=== PATIENT | male | born 1950 | race Caucasian/White ===

== ENCOUNTER 2022-09-08 03:35 | Emergency (ER) | payer BC, MEDICAID ==
[~2022-09-08] VITALS: Ht 157.5 cm; Wt 60.0 kg
[~2022-09-08 03:35] MED LIST: RISP2TAB97 PO; RISP3TAB11 PO; TRAZ-91 PO
[2022-09-08 03:45] VITALS: BP 166/84
[2022-09-08] MEDS ORDERED: loratadine 10mg tablet PO STA (04:16)
[2022-09-08] MEDS ORDERED: famotidine 20mg tablet PO ONE (04:20)
== END 2022-09-08 04:34 | disposition home or self-care (01) ==
LOC: ER 03:36
DX: L50.9 Urticaria, unspecified (principal); I51.9 Heart disease, unspecified; F20.9 Schizophrenia, unspecified; F17.200 Nicotine dependence, unspecified, uncomplicated; Z88.2 Allergy status to sulfonamides; Z79.899 Other long term (current) drug therapy; Z88.8 Allergy status to other drugs, medicaments and biological substances
CPT/HCPCS: 99283

== ENCOUNTER 2023-05-24 08:57 | Emergency (ER) | payer BC, MEDICAID ==
[~2023-05-24] VITALS: Ht 165.1 cm; Wt 65.9 kg
[2023-05-24 09:19] VITALS: BP 141/77; PULSE 69; RESP 20; TEMP 98.2; O2SAT 99
[2023-05-24] MEDS ORDERED: HYDROcodone/acetaminophen 5mg/325mg tablet PO ONE (12:15)
[2023-05-24] MEDS ORDERED: clindamycin 150mg capsule PO ONE (12:15)
[2023-05-24] MEDS ORDERED: bacitracin 15gm ointment TP ONE (12:15)
[2023-05-24] MEDS ORDERED: ibuprofen tablet 400 MG TABLET PO ONE (12:15)
[2023-05-24] MEDS ORDERED: LIDOcaine 1% W/epiNEPHrine 1:200,000 10ml vial IJ ONE (12:15)
--- NOTE | 2023-05-24 12:33 | NUR ---
Call Pt for medications. Pt not in lobby.
== END 2023-05-25 06:53 | disposition left against medical advice (07) ==
LOC: ER 08:58
DX: L02.512 Cutaneous abscess of left hand (principal); F17.200 Nicotine dependence, unspecified, uncomplicated; Z88.2 Allergy status to sulfonamides; Z79.899 Other long term (current) drug therapy
CPT/HCPCS: 99281; A6449

== ENCOUNTER 2023-10-05 15:37 | Emergency (ER) | payer BC, MEDICAID ==
[2023-10-05] MEDS ORDERED: ACET650T2 PO (20:40)
[2023-10-05] MEDS ORDERED: GUAI200T5 PO (20:40)
[2023-10-05] MEDS ORDERED: FEXO1TAB49 PO (20:40)
== END 2023-10-05 16:35 | disposition left against medical advice (07) ==
LOC: ER 15:38
DX: H92.09 Otalgia, unspecified ear (principal); Z53.21 Procedure and treatment not carried out due to patient leaving prior to being seen by health care provider

== ENCOUNTER 2023-10-05 19:25 | Emergency (ER) | payer BC, MEDICAID ==
[~2023-10-05] VITALS: Ht 162.6 cm; Wt 62.3 kg
[2023-10-05] MEDS ORDERED: FEXO1TAB49 PO (20:40)
[2023-10-05] MEDS ORDERED: GUAI200T5 PO (20:40)
[2023-10-05] MEDS ORDERED: ACET650T2 PO (20:40)
[2023-10-05 21:03] VITALS: BP 124/70; PULSE 78; RESP 18; TEMP 97.8; O2SAT 97
== END 2023-10-05 21:17 | disposition home or self-care (01) ==
LOC: ER 19:26
DX: J06.9 Acute upper respiratory infection, unspecified (principal)
CPT/HCPCS: 99282; 99283

== ENCOUNTER 2024-01-28 14:46 | Emergency (ER) | payer BC, MEDICAID ==
[~2024-01-28] VITALS: Ht 162.6 cm; Wt 63.0 kg
[~2024-01-28 14:46] MED LIST changes: +FEXO1TAB49 PO; +GUAI200T5 PO
[2024-01-28 15:14] VITALS: BP 130/83; PULSE 75; RESP 16; TEMP 98.3; O2SAT 100
[2024-01-28] MEDS ORDERED: CEPH-585 PO (15:16)
[2024-01-28] MEDS ORDERED: CLIN300C54 PO (15:16)
== END 2024-01-28 15:26 | disposition home or self-care (01) ==
LOC: ER 14:46
DX: L02.213 Cutaneous abscess of chest wall (principal); F20.9 Schizophrenia, unspecified; Z86.73 Personal history of transient ischemic attack (TIA), and cerebral infarction without residual deficits; Z88.2 Allergy status to sulfonamides; Z88.8 Allergy status to other drugs, medicaments and biological substances; Z79.899 Other long term (current) drug therapy
CPT/HCPCS: 99283

== ENCOUNTER 2024-06-29 16:24 | Inpatient (IN) | payer BC, MEDICAID ==
[~2024-06-29] VITALS: Ht 165.1 cm; Wt 69.5 kg
[~2024-06-29 16:24] MED LIST changes: +CEPH-585 PO
[2024-06-29] MEDS: morphine 4 MG/ML inj SYRINge IV ONE ×2 (16:39→16:42)
[2024-06-29] MEDS: ondansetron/PF 4mg/2ml inj IV ONE (16:40)
[2024-06-29 16:53] LABS: BASOPHILS # (AUTO) 0.1 X10'3 (0-0.2); BASOPHILS % (AUTO) 0.4 % (0-1); EOSINOPHILS # (AUTO) 0.1 X10'3 (0-0.9); EOSINOPHILS % (AUTO) 0.9 % (0-6); HEMATOCRIT 43.1 % (42.0-52.0); HEMOGLOBIN 14.5 g/dl (14.0-17.9); LYMPHOCYTES # (AUTO) 2.2 X10'3 (1.1-4.8); MEAN CORPUSCULAR HEMOGLOBIN 33.7 PG (27.0-31.0); MEAN CORPUSCULAR HGB CONC 33.6 g/dL (33.0-36.5); MEAN CORPUSCULAR VOLUME 100.5 FL (78-98); MONOCYTES # (AUTO) 3.4 X10'3 (0-0.9); MONOCYTES % (AUTO) 21.5 % (2-12); NEUTROPHILS # (AUTO) 9.9 X10'3 (1.8-7.7); NEUTROPHILS % (AUTO) 63.2 % (42-75); PLATELET COUNT 236 X10'3 (140-440); RED BLOOD COUNT 4.29 X10'6 (4.70-6.10); RED CELL DISTRIBUTION WIDTH 14.7 % (11.5-14.5); WHITE BLOOD COUNT 15.7 X10'3 (4.5-11.0)
[2024-06-29] MEDS: normal saline 1000ML IV soln IVB ONE (16:54)
[2024-06-29] MEDS: fentaNYL/PF 50MCG/1 ML 2ML syringe IV ONE (17:01)
[2024-06-29 17:04] LABS: ALANINE AMINOTRANSFERASE 194 U/L (12-78); ALBUMIN 2.8 G/DL (3.4-5.0); ALBUMIN/GLOBULIN RATIO 0.5 (1.1-1.5); ALKALINE PHOSPHATASE 175 IU/L (46-116); ANION GAP 21 (8-16); ASPARTATE AMINO TRANSFERASE 112 U/L (10-37); BILIRUBIN,TOTAL 2.5 MG/DL (0.1-1.0); BLOOD UREA NITROGEN 99 MG/DL (7-18); BUN/CREATININE RATIO 13.1 (10.0-20.0); CALCIUM 8.3 MG/DL (8.5-10.1); CHLORIDE 99 MMOL/L (99-107); CREATININE 7.56 MG/DL (0.60-1.10); SODIUM 139 MMOL/L (135-145); TOTAL CARBON DIOXIDE 19.1 MMOL/L (24-32); TOTAL PROTEIN 8.2 G/DL (6.4-8.2); eCRCL 7 ML/MIN; eGFR 7 ML/MIN
[2024-06-29] MEDS ORDERED: morphine 2 MG/ML inj. syringe IV PRN ×2 (17:10)
[2024-06-29] MEDS ORDERED: potassium Cl 20 mEq SR tablet PO PRN (17:10)
[2024-06-29] MEDS ORDERED: magnesium Cl slow-release 64mg tablet PO PRN (17:10)
[2024-06-29] MEDS ORDERED: acetaminophen 325mg tablet PO PRN (17:10)
[2024-06-29] MEDS ORDERED: potassium Cl 40MEQ/1/2NS 520ml 520 ML IV PRN (17:10)
[2024-06-29] MEDS ORDERED: ondansetron/PF 4mg/2ml inj IV PRN (17:10)
[2024-06-29] MEDS ORDERED: bisacodyl 10mg suppository rectal RC PRN (17:10)
[2024-06-29] MEDS ORDERED: HYDROcodone/acetaminophen 10/325mg tab PO PRN (17:10)
[2024-06-29] MEDS ORDERED: magnesium sulf-water 2g/50mL 50 ML IV PRN (17:10)
[2024-06-29] MEDS ORDERED: HYDROcodone/acetaminophen 5mg/325mg tablet PO PRN (17:10)
[2024-06-29] MEDS ORDERED: magnesium sulf-water 4G/100mL 100 ML IV PRN (17:10)
[2024-06-29 17:11] LABS: PRO BRAIN NATRIURETIC PEPTIDE 336 PG/ML (0-125)
[2024-06-29 17:13] LABS: GLUCOSE 127 MG/DL (70-104); POTASSIUM 4.3 MMOL/L (3.5-5.1)
[2024-06-29 17:27] LABS: TOTAL CELLS COUNTED 100
[2024-06-29 17:28] LABS: BURR CELLS FEW; PLATELET ESTIMATE NORMAL
[2024-06-29] MEDS: LORazepam 2 mg/ml vial IV ONE (17:34)
[2024-06-29] MEDS: normal saline 1000ml 1,000 ML IV SCH (17:34)
[2024-06-29] MEDS: LidoCAINE 2% Topical Jelly 11mL syringe (UROJET) TOP ONE (17:37)
[2024-06-29] MEDS: CefTRIAXone 2gm/D5W 50ml BAG 50 ML IV SCH (17:40)
[2024-06-29 17:52] LABS: CREATINE KINASE 207 U/L (39-308)
[2024-06-29 17:55] LABS: ETHANOL < 10 MG/DL (<10)
[2024-06-29] MEDS ORDERED: NO HOME MEDS (18:16)
[2024-06-29 18:25] LABS: APTT 24 SECONDS (22-32); INR 1.1 INR; PROTHROMBIN TIME 11.8 SECONDS (9.0-12.0)
[2024-06-29 18:30] LABS: URINE AMPHETAMINE SCREEN POSITIVE (Neg); URINE BARBITUATE SCREEN NEGATIVE (Neg); URINE BENZODIAZEPINES SCREEN NEGATIVE (Neg); URINE CANNABINOID SCREEN NEGATIVE (Neg); URINE COCAINE SCREEN NEGATIVE (Neg); URINE METHADONE SCREEN NEGATIVE (Neg); URINE OPIATE SCREEN POSITIVE (Neg); URINE PHENCYCLIDINE SCREEN NEGATIVE (Neg)
[2024-06-29] MEDS: nicotine 14mg patch - 24hr TD ONE (18:49)
[2024-06-29 18:53] LABS: UA COLLECTION TYPE FOLEY CATH
[2024-06-29 18:55] LABS: COLOR,URINE Brown (Yellow)
[2024-06-29 18:57] LABS: CLARITY,URINE Bloody (Clear); SQUAMOUS EPITHELIAL CELL,UR FEW /LPF (FEW)
[2024-06-29 18:58] LABS: BACTERIA,URINE FEW /HPF (Neg); RBC,URINE TNTC /HPF (0-2)
[2024-06-29 19:02] LABS: AMORPHOUS PHOSPHATES 2+
[2024-06-29] MEDS: heparin, porcine 5000 units/ml vial SQ SCH (19:59)
[2024-06-29] MEDS: metroNIDAZOLE-Flagyl 500mg/NS 100 ML IV SCH (19:59)
[2024-06-29 22:00] VITALS: BP 135/78; PULSE 83; RESP 19; TEMP 97.5; O2SAT 92
[2024-06-29 22:03] VITALS: RESP 19; O2SAT 92
[2024-06-30] VITALS (7 sets, daily range): BP systolic 105–144; BP diastolic 55–87; PULSE 76–83; RESP 14–20; TEMP 97.8–98.5; O2SAT 93–97
[2024-06-30] MEDS: piperacillin/tazo 3.375gm/50ml 50 ML IV SCH (00:10)
[2024-06-30 07:31] LABS: ALANINE AMINOTRANSFERASE 131 U/L (12-78); ALBUMIN 1.8 G/DL (3.4-5.0); ALBUMIN/GLOBULIN RATIO 0.5 (1.1-1.5); ALKALINE PHOSPHATASE 121 IU/L (46-116); ANION GAP 9 (8-16); ASPARTATE AMINO TRANSFERASE 82 U/L (10-37); BILIRUBIN,TOTAL 2.1 MG/DL (0.1-1.0); BLOOD UREA NITROGEN 42 MG/DL (7-18); BUN/CREATININE RATIO 26.3 (10.0-20.0); CALCIUM 7.5 MG/DL (8.5-10.1); CHLORIDE 117 MMOL/L (99-107); POTASSIUM 4.5 MMOL/L (3.5-5.1); SODIUM 150 MMOL/L (135-145); TOTAL CARBON DIOXIDE 24.2 MMOL/L (24-32); TOTAL PROTEIN 5.7 G/DL (6.4-8.2); eCRCL 34 ML/MIN; eGFR 42 ML/MIN
[2024-06-30 07:34] LABS: GLUCOSE 74 MG/DL (70-104)
[2024-06-30 07:59] LABS: BASOPHILS % (AUTO) 0.4 % (0-1); EOSINOPHILS # (AUTO) 0.2 X10'3 (0-0.9); EOSINOPHILS % (AUTO) 2.8 % (0-6); HEMATOCRIT 31.8 % (42.0-52.0); HEMOGLOBIN 10.6 g/dl (14.0-17.9); LYMPHOCYTES # (AUTO) 0.8 X10'3 (1.1-4.8); MEAN CORPUSCULAR HEMOGLOBIN 33.1 PG (27.0-31.0); MEAN CORPUSCULAR HGB CONC 33.2 g/dL (33.0-36.5); MEAN CORPUSCULAR VOLUME 99.8 FL (78-98); MEAN PLATELET VOLUME 9.4 FL (7.4-10.4); MONOCYTES # (AUTO) 1.2 X10'3 (0-0.9); MONOCYTES % (AUTO) 19.3 % (2-12); NEUTROPHILS # (AUTO) 4.2 X10'3 (1.8-7.7); NEUTROPHILS % (AUTO) 65.5 % (42-75); RED BLOOD COUNT 3.19 X10'6 (4.70-6.10); RED CELL DISTRIBUTION WIDTH 14.7 % (11.5-14.5); WHITE BLOOD COUNT 6.4 X10'3 (4.5-11.0)
[2024-06-30 08:01] LABS: PLATELET COUNT 108 X10'3 (140-440)
[2024-06-30] MEDS: tamsulosin 0.4mg capsule PO SCH ×2 (09:25→11:10)
[2024-06-30] MEDS: dextrose 5%-water 1,000 ML IV SCH (16:04)
[2024-07-01] VITALS (8 sets, daily range): BP systolic 122–172; BP diastolic 65–117; PULSE 70–82; RESP 15–24; TEMP 98–99.5; O2SAT 93–96
[2024-07-01 10:13] LABS: BASOPHILS % (AUTO) 0.7 % (0-1); EOSINOPHILS # (AUTO) 0.3 X10'3 (0-0.9); EOSINOPHILS % (AUTO) 5.9 % (0-6); HEMATOCRIT 34.5 % (42.0-52.0); HEMOGLOBIN 11.8 g/dl (14.0-17.9); LYMPHOCYTES % (AUTO) 19.3 % (21-51); MEAN CORPUSCULAR HEMOGLOBIN 35.5 PG (27.0-31.0); MEAN CORPUSCULAR HGB CONC 34.2 g/dL (33.0-36.5); MEAN CORPUSCULAR VOLUME 103.8 FL (78-98); MEAN PLATELET VOLUME 9.2 FL (7.4-10.4); MONOCYTES # (AUTO) 1.3 X10'3 (0-0.9); MONOCYTES % (AUTO) 23.8 % (2-12); NEUTROPHILS # (AUTO) 2.7 X10'3 (1.8-7.7); NEUTROPHILS % (AUTO) 50.3 % (42-75); PLATELET COUNT 126 X10'3 (140-440); RED BLOOD COUNT 3.32 X10'6 (4.70-6.10); RED CELL DISTRIBUTION WIDTH 14.1 % (11.5-14.5); WHITE BLOOD COUNT 5.4 X10'3 (4.5-11.0)
[2024-07-01 10:15] LABS: ALANINE AMINOTRANSFERASE 129 U/L (12-78); ALBUMIN 1.7 G/DL (3.4-5.0); ALBUMIN/GLOBULIN RATIO 0.4 (1.1-1.5); ALKALINE PHOSPHATASE 137 IU/L (46-116); ANION GAP 5 (8-16); ASPARTATE AMINO TRANSFERASE 102 U/L (10-37); BILIRUBIN,TOTAL 1.6 MG/DL (0.1-1.0); BLOOD UREA NITROGEN 14 MG/DL (7-18); CALCIUM 7.5 MG/DL (8.5-10.1); CHLORIDE 112 MMOL/L (99-107); CREATININE 0.61 MG/DL (0.60-1.10); GLUCOSE 99 MG/DL (70-104); POTASSIUM 3.5 MMOL/L (3.5-5.1); SODIUM 141 MMOL/L (135-145); TOTAL CARBON DIOXIDE 24.5 MMOL/L (24-32); TOTAL PROTEIN 5.6 G/DL (6.4-8.2); eCRCL 90 ML/MIN; eGFR > 90 ML/MIN
[2024-07-01] MEDS ORDERED: NICO-731 TOP (14:17)
[2024-07-01] MEDS ORDERED: tamsulosin capsule PO (14:17)
[2024-07-01] MEDS ORDERED: CIPR-259 PO (14:17)
[2024-07-01] MEDS: folic acid 0.4mg tablet PO SCH (17:29)
[2024-07-02] VITALS (8 sets, daily range): BP systolic 134–157; BP diastolic 84–93; PULSE 69–102; RESP 14–19; TEMP 97–98.4; O2SAT 94–98
[2024-07-02 06:18] LABS: BASOPHILS # (AUTO) 0.1 X10'3 (0-0.2); EOSINOPHILS # (AUTO) 0.5 X10'3 (0-0.9); EOSINOPHILS % (AUTO) 8.5 % (0-6); HEMATOCRIT 38.1 % (42.0-52.0); HEMOGLOBIN 12.9 g/dl (14.0-17.9); LYMPHOCYTES # (AUTO) 1.1 X10'3 (1.1-4.8); LYMPHOCYTES % (AUTO) 18.4 % (21-51); MEAN CORPUSCULAR HEMOGLOBIN 34.3 PG (27.0-31.0); MEAN CORPUSCULAR HGB CONC 33.7 g/dL (33.0-36.5); MEAN CORPUSCULAR VOLUME 101.8 FL (78-98); MEAN PLATELET VOLUME 9.2 FL (7.4-10.4); MONOCYTES # (AUTO) 1.2 X10'3 (0-0.9); MONOCYTES % (AUTO) 18.9 % (2-12); NEUTROPHILS # (AUTO) 3.2 X10'3 (1.8-7.7); NEUTROPHILS % (AUTO) 53.2 % (42-75); PLATELET COUNT 144 X10'3 (140-440); RED BLOOD COUNT 3.75 X10'6 (4.70-6.10); RED CELL DISTRIBUTION WIDTH 14.2 % (11.5-14.5); WHITE BLOOD COUNT 6.1 X10'3 (4.5-11.0)
[2024-07-02 06:47] LABS: ALANINE AMINOTRANSFERASE 151 U/L (12-78); ALBUMIN 1.8 G/DL (3.4-5.0); ALBUMIN/GLOBULIN RATIO 0.4 (1.1-1.5); ALKALINE PHOSPHATASE 172 IU/L (46-116); ANION GAP 3 (8-16); ASPARTATE AMINO TRANSFERASE 132 U/L (10-37); BILIRUBIN,TOTAL 1.2 MG/DL (0.1-1.0); BLOOD UREA NITROGEN 13 MG/DL (7-18); BUN/CREATININE RATIO 17.3 (10.0-20.0); CALCIUM 7.5 MG/DL (8.5-10.1); CHLORIDE 110 MMOL/L (99-107); CREATININE 0.75 MG/DL (0.60-1.10); GLUCOSE 116 MG/DL (70-104); POTASSIUM 3.4 MMOL/L (3.5-5.1); SODIUM 140 MMOL/L (135-145); TOTAL CARBON DIOXIDE 27.2 MMOL/L (24-32); eCRCL 73 ML/MIN; eGFR > 90 ML/MIN
[2024-07-02 07:01] LABS: PLATELET ESTIMATE NORMAL; ROULEAUX 1+; TOTAL CELLS COUNTED 100
[2024-07-02] MEDS: potassium Cl 20 mEq SR tablet PO PRN ×2 (11:01→20:19)
[2024-07-02] MEDS ORDERED: potassium Cl 20 mEq SR tablet PO PRN (20:05)
[2024-07-02] MEDS: ciprofloxacin 250mg tablet PO SCH (21:46)
[2024-07-03] VITALS (7 sets, daily range): BP systolic 136–146; BP diastolic 72–87; PULSE 70–80; RESP 14–19; TEMP 98.1–98.6; O2SAT 95–98
[2024-07-03 07:01] LABS: BASOPHILS # (AUTO) 0.1 X10'3 (0-0.2); BASOPHILS % (AUTO) 0.8 % (0-1); EOSINOPHILS # (AUTO) 0.5 X10'3 (0-0.9); EOSINOPHILS % (AUTO) 6.9 % (0-6); HEMATOCRIT 39.1 % (42.0-52.0); HEMOGLOBIN 13.3 g/dl (14.0-17.9); LYMPHOCYTES # (AUTO) 1.3 X10'3 (1.1-4.8); LYMPHOCYTES % (AUTO) 17.7 % (21-51); MEAN CORPUSCULAR HEMOGLOBIN 34.7 PG (27.0-31.0); MEAN CORPUSCULAR HGB CONC 34.1 g/dL (33.0-36.5); MEAN CORPUSCULAR VOLUME 101.8 FL (78-98); MONOCYTES # (AUTO) 1.3 X10'3 (0-0.9); MONOCYTES % (AUTO) 17.3 % (2-12); NEUTROPHILS # (AUTO) 4.2 X10'3 (1.8-7.7); NEUTROPHILS % (AUTO) 57.3 % (42-75); PLATELET COUNT 146 X10'3 (140-440); RED BLOOD COUNT 3.84 X10'6 (4.70-6.10); RED CELL DISTRIBUTION WIDTH 14.1 % (11.5-14.5); WHITE BLOOD COUNT 7.4 X10'3 (4.5-11.0)
[2024-07-03 07:12] LABS: ALANINE AMINOTRANSFERASE 173 U/L (12-78); ALBUMIN 1.9 G/DL (3.4-5.0); ALBUMIN/GLOBULIN RATIO 0.4 (1.1-1.5); ALKALINE PHOSPHATASE 199 IU/L (46-116); ANION GAP 1 (8-16); ASPARTATE AMINO TRANSFERASE 162 U/L (10-37); BILIRUBIN,TOTAL 1.1 MG/DL (0.1-1.0); BLOOD UREA NITROGEN 14 MG/DL (7-18); BUN/CREATININE RATIO 19.7 (10.0-20.0); CALCIUM 7.9 MG/DL (8.5-10.1); CHLORIDE 109 MMOL/L (99-107); CREATININE 0.71 MG/DL (0.60-1.10); POTASSIUM 4.2 MMOL/L (3.5-5.1); SODIUM 138 MMOL/L (135-145); TOTAL CARBON DIOXIDE 27.6 MMOL/L (24-32); TOTAL PROTEIN 6.4 G/DL (6.4-8.2); eCRCL 79 ML/MIN; eGFR > 90 ML/MIN
[2024-07-03 07:13] LABS: GLUCOSE 97 MG/DL (70-104)
[2024-07-03] MEDS: acetaminophen 325mg tablet PO PRN (21:22)
[2024-07-04] VITALS (7 sets, daily range): BP systolic 135–156; BP diastolic 75–84; PULSE 70–79; RESP 16–20; TEMP 97.2–97.9; O2SAT 94–99
[2024-07-04 06:27] LABS: BASOPHILS # (AUTO) 0.1 X10'3 (0-0.2); BASOPHILS % (AUTO) 0.9 % (0-1); EOSINOPHILS # (AUTO) 0.5 X10'3 (0-0.9); EOSINOPHILS % (AUTO) 6.4 % (0-6); HEMATOCRIT 41.2 % (42.0-52.0); HEMOGLOBIN 13.5 g/dl (14.0-17.9); LYMPHOCYTES # (AUTO) 1.1 X10'3 (1.1-4.8); LYMPHOCYTES % (AUTO) 15.1 % (21-51); MEAN CORPUSCULAR HEMOGLOBIN 33.3 PG (27.0-31.0); MEAN CORPUSCULAR HGB CONC 32.8 g/dL (33.0-36.5); MEAN CORPUSCULAR VOLUME 101.6 FL (78-98); MEAN PLATELET VOLUME 9.3 FL (7.4-10.4); MONOCYTES # (AUTO) 1.2 X10'3 (0-0.9); NEUTROPHILS # (AUTO) 4.6 X10'3 (1.8-7.7); NEUTROPHILS % (AUTO) 61.6 % (42-75); PLATELET COUNT 160 X10'3 (140-440); RED BLOOD COUNT 4.05 X10'6 (4.70-6.10); RED CELL DISTRIBUTION WIDTH 14.1 % (11.5-14.5); WHITE BLOOD COUNT 7.5 X10'3 (4.5-11.0)
[2024-07-04 07:00] LABS: ALANINE AMINOTRANSFERASE 178 U/L (12-78); ALBUMIN 1.9 G/DL (3.4-5.0); ALBUMIN/GLOBULIN RATIO 0.4 (1.1-1.5); ALKALINE PHOSPHATASE 224 IU/L (46-116); ANION GAP 4 (8-16); ASPARTATE AMINO TRANSFERASE 166 U/L (10-37); BILIRUBIN,TOTAL 0.9 MG/DL (0.1-1.0); BLOOD UREA NITROGEN 17 MG/DL (7-18); CALCIUM 8.1 MG/DL (8.5-10.1); CHLORIDE 108 MMOL/L (99-107); CREATININE 0.63 MG/DL (0.60-1.10); GLUCOSE 134 MG/DL (70-104); POTASSIUM 3.7 MMOL/L (3.5-5.1); SODIUM 139 MMOL/L (135-145); TOTAL CARBON DIOXIDE 27.1 MMOL/L (24-32); TOTAL PROTEIN 6.7 G/DL (6.4-8.2); eCRCL 89 ML/MIN; eGFR > 90 ML/MIN
[2024-07-05] VITALS (7 sets, daily range): BP systolic 120–152; BP diastolic 67–90; PULSE 64–100; RESP 14–19; TEMP 97.2–98.7; O2SAT 95–100
[2024-07-05 07:31] LABS: ALANINE AMINOTRANSFERASE 200 U/L (12-78); ALBUMIN 2.2 G/DL (3.4-5.0); ALBUMIN/GLOBULIN RATIO 0.4 (1.1-1.5); ALKALINE PHOSPHATASE 239 IU/L (46-116); ANION GAP 2 (8-16); ASPARTATE AMINO TRANSFERASE 197 U/L (10-37); BLOOD UREA NITROGEN 21 MG/DL (7-18); BUN/CREATININE RATIO 32.3 (10.0-20.0); CALCIUM 7.9 MG/DL (8.5-10.1); CHLORIDE 105 MMOL/L (99-107); CREATININE 0.65 MG/DL (0.60-1.10); POTASSIUM 3.9 MMOL/L (3.5-5.1); SODIUM 136 MMOL/L (135-145); TOTAL CARBON DIOXIDE 29.5 MMOL/L (24-32); TOTAL PROTEIN 7.3 G/DL (6.4-8.2); eCRCL 87 ML/MIN; eGFR > 90 ML/MIN
[2024-07-05 07:41] LABS: GLUCOSE 94 MG/DL (70-104)
[2024-07-06 06:00] VITALS: BP 176/82; PULSE 75; RESP 13; TEMP 97.6; O2SAT 95
[2024-07-06 08:00] VITALS: RESP 13; O2SAT 95
[2024-07-06] MEDS ORDERED: ringers solution, lacted 1,000 ML IV SCH (08:15)
[2024-07-06] MEDS: amLODIPine 5mg tablet PO SCH (08:15)
[2024-07-06 09:24] LABS: ALANINE AMINOTRANSFERASE 246 U/L (12-78); ALBUMIN 2.2 G/DL (3.4-5.0); ALBUMIN/GLOBULIN RATIO 0.4 (1.1-1.5); ALKALINE PHOSPHATASE 236 IU/L (46-116); ANION GAP 4 (8-16); ASPARTATE AMINO TRANSFERASE 235 U/L (10-37); BLOOD UREA NITROGEN 17 MG/DL (7-18); BUN/CREATININE RATIO 22.7 (10.0-20.0); CALCIUM 8.2 MG/DL (8.5-10.1); CHLORIDE 104 MMOL/L (99-107); CREATININE 0.75 MG/DL (0.60-1.10); GLUCOSE 158 MG/DL (70-104); POTASSIUM 3.8 MMOL/L (3.5-5.1); SODIUM 135 MMOL/L (135-145); TOTAL CARBON DIOXIDE 27.2 MMOL/L (24-32); TOTAL PROTEIN 7.5 G/DL (6.4-8.2); eCRCL 75 ML/MIN; eGFR > 90 ML/MIN
[2024-07-06 10:00] VITALS: BP 117/63; PULSE 83; RESP 16; TEMP 98.3; O2SAT 97
[2024-07-06] MEDS: nicotine 14mg patch - 24hr TD SCH (15:25)
[2024-07-06 18:00] VITALS: BP 123/73; PULSE 71; RESP 16; TEMP 98.5; O2SAT 95
[2024-07-06 20:00] VITALS: RESP 14; O2SAT 95
[2024-07-06 22:00] VITALS: BP 119/63; PULSE 76; RESP 18; TEMP 98.2; O2SAT 97
[2024-07-07 06:00] VITALS: BP 139/72; PULSE 70; RESP 18; TEMP 97.8; O2SAT 98
[2024-07-07 07:10] VITALS: RESP 16; O2SAT 98
[2024-07-07 08:55] LABS: ALANINE AMINOTRANSFERASE 262 U/L (12-78); ALBUMIN 2.1 G/DL (3.4-5.0); ALBUMIN/GLOBULIN RATIO 0.4 (1.1-1.5); ALKALINE PHOSPHATASE 224 IU/L (46-116); ANION GAP 3 (8-16); ASPARTATE AMINO TRANSFERASE 250 U/L (10-37); BILIRUBIN,TOTAL 0.9 MG/DL (0.1-1.0); BLOOD UREA NITROGEN 19 MG/DL (7-18); BUN/CREATININE RATIO 28.4 (10.0-20.0); CHLORIDE 104 MMOL/L (99-107); CREATININE 0.67 MG/DL (0.60-1.10); POTASSIUM 3.8 MMOL/L (3.5-5.1); SODIUM 136 MMOL/L (135-145); TOTAL CARBON DIOXIDE 28.8 MMOL/L (24-32); eCRCL 84 ML/MIN; eGFR > 90 ML/MIN
[2024-07-07 08:57] LABS: GLUCOSE 98 MG/DL (70-104)
[2024-07-07 10:00] VITALS: BP 129/73; PULSE 62; RESP 18; TEMP 98.3; O2SAT 98
[2024-07-07 10:08] VITALS: BP_SYST 167; PULSE 74
[2024-07-07] MEDS ORDERED: lactose-reduced food (Ensure Enlive) - 237ml bottle PO SCH (13:00)
[2024-07-10 05:19] LABS: HBSAG SCREEN Negative (Negative); HEP A AB, IGM Negative (Negative); HEP B CORE AB, IGM Negative (Negative); HEP B SURF AB Reactive (.); HEPATITIS C VIRUS ANTIBODY Reactive (Non Reactive)
== END 2024-07-07 11:55 | disposition home or self-care (01) | DRG 725 ==
LOC: ER 16:25 → ED HOLD 17:20 → PCU 3S 22:03 → ORTHO 4S 07-05 17:36
PROVIDERS: ADMIT Internal Medicine; ATTEND Internal Medicine
DX: N40.1 Benign prostatic hyperplasia with lower urinary tract symptoms (principal); N17.0 Acute kidney failure with tubular necrosis; N13.6 Pyonephrosis; E44.0 Moderate protein-calorie malnutrition; E87.0 Hyperosmolality and hypernatremia; R18.8 Other ascites; N13.8 Other obstructive and reflux uropathy; N32.0 Bladder-neck obstruction; R74.01 Elevation of levels of liver transaminase levels; D53.9 Nutritional anemia, unspecified; R33.8 Other retention of urine; R31.9 Hematuria, unspecified; K80.20 Calculus of gallbladder without cholecystitis without obstruction; K74.60 Unspecified cirrhosis of liver; F20.9 Schizophrenia, unspecified; R79.89 Other specified abnormal findings of blood chemistry; Z88.2 Allergy status to sulfonamides; Z86.73 Personal history of transient ischemic attack (TIA), and cerebral infarction without residual deficits; Z88.8 Allergy status to other drugs, medicaments and biological substances; Z68.25 Body mass index [BMI] 25.0-25.9, adult
CPT/HCPCS: 36415; 71045; 74176; 76700; 76770; 80053; 80305; 80320; 81001; 82140; 82550; 82607; 83605; 83880; 83935; 84145; 84156; 84484; 85007; 85025; 85610; 85730; 86705; 86706; 86709; 86803; 86885; 86900; 86901; 87040; 87081; 87088; 87340; 87522; 93005; 97161; 97530; 99291; A4314; A4358; A5200; G0378; J0696; J1644; J2060; J2270; J2405; J2543; J3010; J3490; J7030; J7040; J7070

== ENCOUNTER 2024-07-17 17:05 | Emergency (ER) | payer BC, MEDICAID ==
[~2024-07-17] VITALS: Ht 154.9 cm; Wt 58.1 kg
[~2024-07-17 17:05] MED LIST changes: -CEPH-585 PO; -FEXO1TAB49 PO; -GUAI200T5 PO; +NICO-731 TOP; -RISP2TAB97 PO; -RISP3TAB11 PO; -TRAZ-91 PO; +tamsulosin capsule PO
[2024-07-17 17:06] VITALS: BP 145/98; PULSE 110; RESP 18; O2SAT 97
[2024-07-17 18:08] VITALS: TEMP 98.9
== END 2024-07-17 18:11 | disposition home or self-care (01) ==
LOC: ER 17:06
DX: T83.9XXA Unspecified complication of genitourinary prosthetic device, implant and graft, initial encounter (principal); F20.9 Schizophrenia, unspecified; F41.0 Panic disorder [episodic paroxysmal anxiety]; Z88.2 Allergy status to sulfonamides; Z88.8 Allergy status to other drugs, medicaments and biological substances; Z79.899 Other long term (current) drug therapy; Z86.73 Personal history of transient ischemic attack (TIA), and cerebral infarction without residual deficits; Y92.89 Other specified places as the place of occurrence of the external cause
CPT/HCPCS: 99281

== ENCOUNTER 2024-08-12 01:03 | Emergency (ER) | payer BC, MEDICAID ==
[~2024-08-12] VITALS: Ht 162.6 cm; Wt 64.0 kg
[2024-08-12] MEDS: LidoCAINE 2% Topical Jelly 11mL syringe (UROJET) TOP ONE (01:15)
[2024-08-12 01:28] LABS: BILIRUBIN,URINE NEGATIVE (Neg); CLARITY,URINE CLEAR (Clear); COLOR,URINE YELLOW (Yellow); GLUCOSE, URINE NEGATIVE (Neg); KETONES,URINE NEGATIVE (Neg); LEUKOCYTE ESTERASE ,URINE MODERATE (Neg); NITRITES, URINE NEGATIVE (Neg); OCCULT BLOOD,URINE MODERATE (Neg); PH,URINE >=9.0 (4.8-8.0); PROTEIN,URINE >=300 mg/dl (Neg); UA COLLECTION TYPE FOLEY CATH
[2024-08-12 01:45] LABS: ALANINE AMINOTRANSFERASE 246 U/L (12-78); ALBUMIN 2.7 G/DL (3.4-5.0); ALBUMIN/GLOBULIN RATIO 0.6 (1.1-1.5); ALKALINE PHOSPHATASE 233 IU/L (46-116); ANION GAP 3 (8-16); ASPARTATE AMINO TRANSFERASE 206 U/L (10-37); BILIRUBIN,TOTAL 1.4 MG/DL (0.1-1.0); BLOOD UREA NITROGEN 36 MG/DL (7-18); BUN/CREATININE RATIO 30.8 (10.0-20.0); CALCIUM 8.2 MG/DL (8.5-10.1); CHLORIDE 102 MMOL/L (99-107); CREATININE 1.17 MG/DL (0.60-1.10); LIPASE 66 U/L (16-77); SODIUM 133 MMOL/L (135-145); TOTAL CARBON DIOXIDE 28.1 MMOL/L (24-32); TOTAL PROTEIN 7.3 G/DL (6.4-8.2); eCRCL 46 ML/MIN; eGFR 61 ML/MIN
[2024-08-12 01:47] LABS: GLUCOSE 132 MG/DL (70-104); POTASSIUM 4.2 MMOL/L (3.5-5.1)
[2024-08-12 01:47] LABS: AMORPHOUS PHOSPHATES 4+; BACTERIA,URINE 4+ /HPF (Neg); MUCUS STRANDS MANY /LPF (Neg); RBC,URINE TNTC /HPF (0-2); SQUAMOUS EPITHELIAL CELL,UR NONE SEEN /LPF (FEW); WBC CLUMPS,URINE MANY /HPF (NEGATIVE); WBC,URINE TNTC /HPF (0-4)
[2024-08-12] MEDS ORDERED: iohexol 300mg/ml 100ml inj. ONE (01:54)
[2024-08-12 01:56] LABS: BASOPHILS # (AUTO) 0.1 X10'3 (0-0.2); BASOPHILS % (AUTO) 0.8 % (0-1); EOSINOPHILS # (AUTO) 0.1 X10'3 (0-0.9); EOSINOPHILS % (AUTO) 1.5 % (0-6); HEMATOCRIT 41.1 % (42.0-52.0); HEMOGLOBIN 13.8 g/dl (14.0-17.9); LYMPHOCYTES # (AUTO) 0.8 X10'3 (1.1-4.8); LYMPHOCYTES % (AUTO) 10.1 % (21-51); MEAN CORPUSCULAR HEMOGLOBIN 33.7 PG (27.0-31.0); MEAN CORPUSCULAR HGB CONC 33.6 g/dL (33.0-36.5); MEAN CORPUSCULAR VOLUME 100.3 FL (78-98); MEAN PLATELET VOLUME 9.9 FL (7.4-10.4); MONOCYTES # (AUTO) 1.7 X10'3 (0-0.9); MONOCYTES % (AUTO) 20.9 % (2-12); NEUTROPHILS # (AUTO) 5.5 X10'3 (1.8-7.7); NEUTROPHILS % (AUTO) 66.7 % (42-75); PLATELET COUNT 152 X10'3 (140-440); RED CELL DISTRIBUTION WIDTH 14.3 % (11.5-14.5); WHITE BLOOD COUNT 8.3 X10'3 (4.5-11.0)
[2024-08-12] MEDS: CefTRIAXone/D5W-Rocephin 1gm 50 ML IV ONE (04:10)
[2024-08-12] MEDS ORDERED: CEFP100T7 PO (04:11)
[2024-08-12 05:38] VITALS: BP 139/83; PULSE 82; RESP 20; TEMP 98.3; O2SAT 95
== END 2024-08-12 05:09 | disposition home or self-care (01) ==
LOC: ER 01:03
DX: N39.0 Urinary tract infection, site not specified (principal); R16.0 Hepatomegaly, not elsewhere classified; R74.01 Elevation of levels of liver transaminase levels; F20.9 Schizophrenia, unspecified; F41.0 Panic disorder [episodic paroxysmal anxiety]; Z88.2 Allergy status to sulfonamides; Z88.8 Allergy status to other drugs, medicaments and biological substances; Z79.899 Other long term (current) drug therapy; Z86.73 Personal history of transient ischemic attack (TIA), and cerebral infarction without residual deficits
CPT/HCPCS: 36415; 51702; 74177; 80053; 81001; 83690; 84484; 85025; 87088; 87186; 96365; 99285; J0696; Q9967; 87077; A4314

== ENCOUNTER 2024-08-21 08:44 | Emergency (ER) | payer BC, MEDICAID ==
[~2024-08-21] VITALS: Ht 172.7 cm; Wt 70.9 kg
[~2024-08-21 08:44] MED LIST changes: +CEFP100T7 PO
[2024-08-21 12:38] VITALS: TEMP 98.4
[2024-08-21 14:59] VITALS: BP 146/79; PULSE 76; RESP 16; O2SAT 99
== END 2024-08-21 14:59 | disposition home or self-care (01) ==
LOC: ER 08:45
DX: T83.091A Other mechanical complication of indwelling urethral catheter, initial encounter (principal); F03.90 Unspecified dementia, unspecified severity, without behavioral disturbance, psychotic disturbance, mood disturbance, and anxiety; F20.9 Schizophrenia, unspecified; F41.0 Panic disorder [episodic paroxysmal anxiety]; F17.210 Nicotine dependence, cigarettes, uncomplicated; Z86.73 Personal history of transient ischemic attack (TIA), and cerebral infarction without residual deficits; Z88.2 Allergy status to sulfonamides; Z88.8 Allergy status to other drugs, medicaments and biological substances; Z79.899 Other long term (current) drug therapy
CPT/HCPCS: 51702; 99284; A4314

== ENCOUNTER 2024-09-27 19:35 | Emergency (ER) | payer BC, MEDICAID ==
[~2024-09-27] VITALS: Ht 162.6 cm; Wt 60.0 kg
[2024-09-27 19:41] VITALS: PULSE 75
[2024-09-27 20:22] LABS: BASOPHILS # (AUTO) 0.1 X10'3 (0-0.2); BASOPHILS % (AUTO) 0.7 % (0-1); EOSINOPHILS % (AUTO) 0.2 % (0-6); HEMATOCRIT 43.3 % (42.0-52.0); HEMOGLOBIN 14.6 g/dl (14.0-17.9); LYMPHOCYTES # (AUTO) 0.8 X10'3 (1.1-4.8); LYMPHOCYTES % (AUTO) 10.4 % (21-51); MEAN CORPUSCULAR HGB CONC 33.8 g/dL (33.0-36.5); MEAN CORPUSCULAR VOLUME 97.8 FL (78-98); MEAN PLATELET VOLUME 9.4 FL (7.4-10.4); MONOCYTES # (AUTO) 0.9 X10'3 (0-0.9); MONOCYTES % (AUTO) 11.9 % (2-12); NEUTROPHILS % (AUTO) 76.8 % (42-75); PLATELET COUNT 178 X10'3 (140-440); RED BLOOD COUNT 4.42 X10'6 (4.70-6.10); RED CELL DISTRIBUTION WIDTH 14.3 % (11.5-14.5); WHITE BLOOD COUNT 7.8 X10'3 (4.5-11.0)
[2024-09-27 20:26] LABS: BILIRUBIN,URINE NEGATIVE (Neg); CLARITY,URINE SLIGHTLY CLOUDY (Clear); COLOR,URINE YELLOW (Yellow); GLUCOSE, URINE NEGATIVE (Neg); KETONES,URINE NEGATIVE (Neg); LEUKOCYTE ESTERASE ,URINE SMALL (Neg); NITRITES, URINE NEGATIVE (Neg); OCCULT BLOOD,URINE NEGATIVE (Neg); PROTEIN,URINE NEGATIVE (Neg)
[2024-09-27 20:28] LABS: UA COLLECTION TYPE FOLEY CATH
[2024-09-27 20:32] LABS: ALBUMIN 2.6 G/DL (3.4-5.0); ANION GAP 8 (8-16); BLOOD UREA NITROGEN 23 MG/DL (7-18); BUN/CREATININE RATIO 27.7 (10.0-20.0); CALCIUM 8.6 MG/DL (8.5-10.1); CHLORIDE 105 MMOL/L (99-107); CREATININE 0.83 MG/DL (0.60-1.10); GLUCOSE 112 MG/DL (70-104); POTASSIUM 3.6 MMOL/L (3.5-5.1); SODIUM 138 MMOL/L (135-145); eCRCL 65 ML/MIN; eGFR > 90 ML/MIN
[2024-09-27 20:34] LABS: BACTERIA,URINE 4+ /HPF (Neg); RBC,URINE NONE SEEN /HPF (0-2); SQUAMOUS EPITHELIAL CELL,UR FEW /LPF (FEW)
[2024-09-27] MEDS ORDERED: CEPH-585 PO (20:48)
[2024-09-27] MEDS ORDERED: FLO0.4C PO (20:50)
[2024-09-27 21:13] VITALS: BP 135/80; RESP 16; TEMP 97.3; O2SAT 97
[2024-09-27] MEDS: cephalexin 250mg capsule PO ONE (21:23)
== END 2024-09-27 21:29 | disposition home or self-care (01) ==
LOC: ER 19:36
DX: T83.592A Infection and inflammatory reaction due to indwelling ureteral stent, initial encounter (principal); N39.0 Urinary tract infection, site not specified; R33.9 Retention of urine, unspecified; F20.89 Other schizophrenia; F41.9 Anxiety disorder, unspecified; Z86.73 Personal history of transient ischemic attack (TIA), and cerebral infarction without residual deficits; Z88.2 Allergy status to sulfonamides; Z79.899 Other long term (current) drug therapy; Y84.6 Urinary catheterization as the cause of abnormal reaction of the patient, or of later complication, without mention of misadventure at the time of the procedure; Y92.89 Other specified places as the place of occurrence of the external cause
CPT/HCPCS: 36415; 51702; 80048; 81001; 85025; 87077; 87088; 87186; 99284; A4314

== ENCOUNTER 2025-04-30 19:16 | Emergency (ER) | payer BC, MEDICAID ==
[~2025-04-30] VITALS: Ht 162.6 cm; Wt 60.0 kg
[2025-04-30 19:29] VITALS: BP 146/86; PULSE 78; TEMP 98.8; O2SAT 97
[2025-04-30 19:40] LABS: MEAN PLATELET VOLUME 10.8 FL (7.4-10.4); RED CELL DISTRIBUTION WIDTH 15.9 % (11.5-14.5)
[2025-04-30 19:54] LABS: CREATININE 0.81 MG/DL (0.60-1.10); TOTAL CARBON DIOXIDE 28.3 MMOL/L (24-32); eCRCL 66 ML/MIN; eGFR > 90 ML/MIN
--- NOTE | 2025-04-30 20:55 | Physician Documentation ---
History of Present Illness ~ Chief Complaint: Abdominal Pain Stated Complaint: ABD PAIN Time Seen by MD: 20:53 Primary Medical Doctor: Dr. Collins [facility] Patient presents to the emergency room for evaluation of left lower quadrant abdominal pain. Patient reports he had recent hernia repair at our facility however that has nothing recent until this past winter where he had a small bowel obstruction requiring surgical intervention. Patient states that the left lower quadrant abdominal pain just started today. Reports bladder and bowel to be normal. No fevers. Medication Reconciliation Allergies: Coded Allergies: Sulfa (Sulfonamide Antibiotics) (Verified Allergy, Intermediate, 04/30/25) diphenhydramine HCl (Verified Allergy, Intermediate, 04/30/25) phenobarbital (Verified Allergy, Unknown, 04/30/25) Scheduled Cefpodoxime Proxetil (Cefpodoxime Proxetil), 1 TAB PO Q12H Cephalexin*Monohydrate* (Keflex*), 1 CAP PO Q12H Nicotine (Nicotine Patch), 1 PATCH TOP DAILY [tamsulosin capsule], 0.4 MG PO DAILY Past Medical History Past Medical History: CVA/TIA/Stroke, Panic Disorder, Schizophrenia Past Surgical History: noncontributory, other Patient History: Unknown family medical history PT DOES NOT KNOW Alcohol Use: None Drug Use: marijuana, methamphetamine Lives In: Homeless Occupation: unemployed Review of Systems ROS All review of systems negative except as per HPI Physical Exam Vital Signs: Temperature: 98.8, Source: Oral, Heart Rate: 78, Respiratory Rate: 14, BP: 146/86, Pulse Oximetry: 97, Weight: 60.000 Physical Exam General: Patient is awake, alert, oriented x4 in no acute distress Head: Normocephalic and atraumatic. Eyes: Conjunctival normal. EOMI. PERRL. ENT: Mucous membranes moist. Neck: Supple, trachea is midline. Chest: Clear to auscultation bilaterally without rales, rhonchi, or wheezes. There is no accessory muscle use or retractions. Cardiac: RRR without murmurs, gallops, or rubs. Abd: Soft, nondistended, left lower quadrant abdominal tenderness to palpation without peritonitis. Postsurgical scars noted without signs of infection Progress Results/Orders Results/Orders Orders - CHUCKIE CUEVAS MD Ct Abdomen Pelvis (04/30/25 21:20) Cult Urine + [place] Ct (04/30/25 22:45) Completed Orders - CHUCKIE CUEVAS MD Cbc/Diff (04/30/25 19:21) Lipase (04/30/25 19:21) CMP (04/30/25 19:21) Ct Abdomen Pelvis (04/30/25 21:20) Normal Saline 1000ml (0.9% Sodium Chlori (04/30/25 21:10) Iohexol 300mg/Ml 100ml Inj. (Omnipaque-3 (04/30/25 21:22) * Dc Horn * (04/30/25 21:57) * (A) Horn- Protocol * (04/30/25 21:57) Ua W/Microscopic, Cult If Ind (04/30/25 22:10) Cephalexin Capsule (Keflex Capsule) (04/30/25 23:00) Medications Received in ER Medications (Trade) Dose Ordered Sig/[place] Route PRN Reason Start Time Stop Time Status Last Admin Dose Admin (0.9% sodium chloride (NS) 1000ml IV soln) 1,000 ml ONCE ONCE IVB 04/30/25 21:10 04/30/25 21:12 DC 04/30/25 22:39 1,000 ML Vital Signs 04/30/25 04/30/25 04/30/25 19:19 19:29 22:35 Temp 98.8 98.8 Pulse 96 78 Resp 15 14 13 B/P (MAP) 147/83 146/86 (106) Pulse Ox 98 97 Laboratory Tests Test 04/30/25 19:27 04/30/25 22:10 White Blood Count 4.8 Red Blood Count 3.74 L Hemoglobin 11.1 L Hematocrit 33.3 L Mean Corpuscular Volume 89.0 Mean Corpuscular Hemoglobin 29.6 Mean Corpuscular Hemoglobin Concent 33.2 Red Cell Distribution Width 15.9 H Platelet Count 116 L Mean Platelet Volume 10.8 H Neutrophils (%) (Auto) 50.8 Lymphocytes (%) (Auto) 23.9 Monocytes (%) (Auto) 20.8 H Eosinophils (%) (Auto) 3.3 Basophils (%) (Auto) 1.2 H Neutrophils # (Auto) 2.4 Lymphocytes # (Auto) 1.1 Monocytes # (Auto) 1.0 H Eosinophils # (Auto) 0.2 Basophils # (Auto) 0.1 CBC Comment Sodium Level 137 Potassium Level 3.6 Chloride Level 105 Carbon Dioxide Level 28.3 Anion Gap 4 L Blood Urea Nitrogen 17 Creatinine 0.81 Estimated GFR/1.73 m2 > 90 BUN/Creatinine Ratio 21.0 H Glucose Level 115 H Calcium Level 8.5 Total Bilirubin 0.7 Aspartate Amino Transf (AST/SGOT) 55 H Alanine Aminotransferase (ALT/SGPT) 45 Alkaline Phosphatase 235 H Total Protein 7.5 Albumin 2.7 L Globulin 4.8 H Albumin/Globulin Ratio 0.6 L Lipase 31 Chemistry Comments Urine Specimen Description Non-specified Urine Color Straw Urine Clarity Cloudy Urine pH >=9.0 Urine Specific [place] 1.010 Urine Protein 100 H Urine Glucose (UA) Negative Urine Ketones Negative Urine Occult Blood Negative Urine Nitrite Positive H Urine Bilirubin Negative Urine Urobilinogen 1.0 Urine Leukocyte Esterase Moderate H Urine RBC 0-2 Urine WBC 10-20 H Urine Squamous Epithelial Cells Few Urine Triple Phosphate Crystals 4+ Urine Bacteria 2+ Urine Mucus Many Urine Culture Indicated Indicated Volume Urine Centrifuged 10 ml Urine Comment Microbiology Date/Time Source Procedure Growth Status 04/30/25 22:45 Urine Nonspecified Urine Culture - Preliminary Culture received. Resulted Medical Decision Making Findings Patient presents to the emergency room with chief complaint of abdominal pain. Differentials include but are not limited to constipation, diverticulitis, appendicitis, pancreatitis, small-bowel obstruction therefore emergent labs and imaging ordered. Labs reassuring. Urine is clear. CT scan reassuring. U nknown cause for patient's abdominal pain however he does have a urinary tract infection we will treat as such. ER precautions discussed. Patient is asking for food eating. Departure Disposition: HOME / SELF CARE / HOMELESS Impression: Primary Impression: Abdominal pain Additional Impression: UTI (urinary tract infection) Condition: Stable Discharge Instructions: Abdominal Pain (Nonspecific), Urinary Tract Infection, Adult Referrals: NO PRIMARY CARE PROVIDER (PCP) Prescriptions Cephalexin*Monohydrate* (Keflex*) 500 Mg Capsule 1 CAP PO Q12H for 10 Days, #20 CAP Prov: CHUCKIE CUEVAS MD 04/30/25 Signature Scribe Signature: No scribe Attestation: The note accurately reflects work and decisions made by me.Chuckie Cuevas MD 05/01/25 02:54 CHUCKIE CUEVAS MD Apr 30, 2025 20:55
[2025-04-30] MEDS ORDERED: iohexol 300mg/ml 100ml inj. ONE (21:22)
--- NOTE | 2025-04-30 22:14 | RADIOLOGY REPORT ---
Exam: CT CT ABDOMEN PELVIS W/ IV CONTRAST History: llq pain Comparison Study: CT CT ABDOMEN PELVIS on DOS: 04/03/25, CT CT ABDOMEN PELVIS W/ IV ORAL CONTRAST on DOS: 01/26/25, CT CT ABDOMEN PELVIS W/ ORAL CONTRAST on DOS: 01/17/25, CT CT ABDOMEN PELVIS W/ ORAL CO NTRAST on DOS: 01/13/25, CT CT ABDOMEN PELVIS W/ IV CONTRAST on DOS: 01/11/25 TECHNIQUE: Multidetector CT of the abdomen and pelvis was performed from lung bases to pubic symphysi s. Imaging was performed without IV contrast. Axial, coronal, and sagittal multiplanar reformats were obtained from the axial data set by the technologist. RADIATION DOSE: DLP <<>> mGy.cm; CTDI vol <<>> mGy. Findings: The imaged lower lungs are unremarkable. Ill defined 6 cm hepatic dome mass. 9 mm segment 4A hepatic lobe lesion. Mild surface contour nodular ity of the liver. The spleen measures 12 cm. Numerous gallstones are noted. The adrenal glands are unremarkable. Small bilateral renal cysts measuring up to 2.2 cm in the left k idney. The urinary bladder is decompressed with a zarate catheter. The prostate is enlarged measuring 5.4 cm in transverse dimension with median lobe hypertrophy. Stomach and small bowel are unremarkable. Status post ileocecectomy with anastomosis within the right lower abdomen. The remainder of the colon is unremarkable. Next Tortuous iliac arteries bilaterally. Infrarenal abdominal aorta measures 3 cm. The mesenteric and kelton al arteries are unremarkable. Moderate degenerative changes within the sacroiliac joints. Moderate multi level discogenic and spond ylitic degenerative changes within the lumbar spine. Impression: 1. Cirrhotic morphology of the liver with 9 mm left hepatic lobe lesion and ill defined 6 cm hepatic dome lesion, correlate with patients known history of hepatocellular carcinoma and prior treatment. I f no known history recommend MRI of the abdomen with contrast for further evaluation. 2. Zarate catheter with prostatomegaly 3. Cholelithiasis 4. 3 cm infrarenal abdominal aortic aneurysm
[2025-04-30 22:35] VITALS: RESP 13
[2025-04-30 22:36] LABS: LEUKOCYTE ESTERASE ,URINE MODERATE (Neg); NITRITES, URINE POSITIVE (Neg); OCCULT BLOOD,URINE NEGATIVE (Neg)
[2025-04-30 22:37] LABS: UA COLLECTION TYPE NON-SPECIFIED
[2025-04-30] MEDS: normal saline 1000ML IV soln IVB ONE (22:39)
[2025-04-30 22:42] LABS: MUCUS STRANDS MANY /LPF (Neg); SQUAMOUS EPITHELIAL CELL,UR FEW /LPF (FEW)
[2025-04-30 22:44] LABS: TRIPLE PHOSPHATE CRYST 4+ /HPF (NEGATIVE)
[2025-04-30] MEDS ORDERED: CEPH-585 PO (23:01)
== END 2025-04-30 23:19 | disposition home or self-care (01) ==
LOC: ER 19:16
DX: N39.0 Urinary tract infection, site not specified (principal); R10.32 Left lower quadrant pain; F20.9 Schizophrenia, unspecified; F12.90 Cannabis use, unspecified, uncomplicated; F15.90 Other stimulant use, unspecified, uncomplicated; Z59.00 Homelessness unspecified; Z88.2 Allergy status to sulfonamides; Z86.73 Personal history of transient ischemic attack (TIA), and cerebral infarction without residual deficits
CPT/HCPCS: 74177; 80053; 81001; 83690; 85025; 87077; 87088; 87186; 96360; 99285; J7030; Q9967; A4358; C1758

== ENCOUNTER 2025-07-15 16:02 | Emergency (ER) | payer BC, MEDICAID ==
[~2025-07-15] VITALS: Ht 162.6 cm; Wt 64.0 kg
--- NOTE | 2025-07-15 16:51 | Physician Documentation ---
History of Present Illness Chief Complaint: See Chief Complaint Stated Complaint: ABDOMINAL PAIN Time Seen by MD: 16:04 Primary Medical Doctor: Dr. Collins Mode of Arrival: EMS HPI A 75-year-old male who was coming [facility] [place] today states he has a acute onset distended abdomen and a leaking catheter. He adds that he did not have a drainage bag attached of the catheter in tried to place a stick to stopped leaking. Reports that the distention began yesterday. He has d istended abdomen and midepigastric pain. Save Tylenol in route via EMS Patient has a hernia repair on 04/2025 Has a history of schizophrenia and bipolar disorder Day of Onset: Jul 15, 2025 Medication Reconciliation Allergies: Coded Allergies: Sulfa (Sulfonamide Antibiotics) (Verified Allergy, Intermediate, 04/30/25) diphenhydramine HCl (Verified Allergy, Intermediate, 04/30/25) phenobarbital (Verified Allergy, Unknown, 04/30/25) Scheduled Cefpodoxime Proxetil (Cefpodoxime Proxetil), 1 TAB PO Q12H Nicotine (Nicotine Patch), 1 PATCH TOP DAILY [tamsulosin capsule], 0.4 MG PO DAILY Past Medical History Past Medical History: CVA/TIA/Stroke, Panic Disorder, Schizophrenia Past Surgical History: noncontributory, other Patient History: Unknown family medical history PT DOES NOT KNOW Alcohol Use: None Drug Use: marijuana, methamphetamine Lives In: Homeless Occupation: unemployed Review of Systems All Other Systems at this time: Reviewed and Negative ROS As stated above in the HPI, otherwise all systems are reviewed and negative. Physical Exam Vital Signs: Temperature: 98.1, Source: Oral, Heart Rate: 74, Respiratory Rate: 18, BP: 125/73, Pulse Oximetry: 97, Weight: 64.000 Oxygen Flow Rate: 0 Physical Exam General: Alert, no apparent distress. Respiratory: Lungs clear, no respiratory distress. Cardiovascular: Regular rate and rhythm, no murmurs. Gastrointestinal: Soft, distended mid epigastric region Neurologic: Oriented x4. Psychiatric: Normal mood and affect. Skin: Normal color, warm and dry. No edema, no ecchymosis. Progress Results/Orders Results/Orders Orders - GUSTABO LINDO [employer] TE[employer] Urinalysis, Cult If Indicated (07/15/25 16:20) Cbc/Diff (07/15/25 16:20) BMP (07/15/25 16:20) Lipase (07/15/25 16:20) CMP (07/15/25 16:20) Straight Cath For Urine Sample (07/15/25 16:20) * Bladder Scan / Post Residual (07/15/25 16:20) Ct Abdomen Pelvis (07/15/25 16:24) Vital Signs 07/15/25 07/15/25 16:05 16:16 Temp 98.1 Pulse 74 Resp 18 B/P (MAP) 125/73 Pulse Ox 97 O2 Flow Rate 0 Medical Decision Making Findings ct indicated Nonemergent liver MRI with and without IV contrast is recommended to evaluate for an underlying mass. Patient also tested positive for UTI and positive nitrites. Started him on Rocephin and limited fluids secondary to evidence of prior elevated proBNP Differential Dx:Considerations: Include: AAA, Angina/UT, Aortic dissection, Appendicitis, Bowel obstruction, Cholangitis, Cholelithasis, Constipation, Diverticular disease, Esophageal rupture, Esophagitis, Gastritis/PUD, Gastroenteritis, GI hemorrhage, Hernia, Hepatitis, Inflammatory BD, Ischemic bowel, Pancreatitis, Porphyria, Testicular torsion, Trauma, intraabdominal, Urinary obstruction, Urinary tract infection, Urolithiasis, Other Departure Disposition: ADMITTED INPATIENT Impression: Primary Impression: UTI (urinary tract infection) Additional Impression: Chronic indwelling Horn catheter Condition: Stable Referrals: NO PRIMARY CARE PROVIDER (PCP) Signature Scribe Signature: Attestation: Scribed for Gustabo Lindo Manager Transplant by Gustabo Marin NP . 07/15/25 17:48 GUSTABO LINDO [employer] TE[employer] Jul 15, 2025 16:51
[2025-07-15] MEDS ORDERED: iohexol 300mg/ml 100ml inj. ONE (17:10)
[2025-07-15 17:32] LABS: MEAN PLATELET VOLUME 10.2 FL (7.4-10.4); RED CELL DISTRIBUTION WIDTH 17.3 % (11.5-14.5)
[2025-07-15 17:32] LABS: LEUKOCYTE ESTERASE ,URINE NEGATIVE (Neg); NITRITES, URINE POSITIVE (Neg); OCCULT BLOOD,URINE NEGATIVE (Neg)
[2025-07-15 17:34] LABS: UA COLLECTION TYPE FOLEY CATH
[2025-07-15 17:43] LABS: MUCUS STRANDS FEW /LPF (Neg); SQUAMOUS EPITHELIAL CELL,UR FEW /LPF (FEW)
[2025-07-15 17:44] LABS: HYALINE CASTS 0-3 /LPF (NEGATIVE)
[2025-07-15 17:48] LABS: CREATININE 0.71 MG/DL (0.60-1.10); TOTAL CARBON DIOXIDE 25.8 MMOL/L (24-32); eCRCL 75 ML/MIN; eGFR > 90 ML/MIN
[2025-07-15 18:05] VITALS: BP 131/80; PULSE 65; RESP 18; O2SAT 95
[2025-07-15 18:07] LABS: LYMPHOCYTES % (MANUAL) 19.0 % (21-51); MONOCYTES % (MANUAL) 26.0 % (2-12); NEUTROPHILS % (MANUAL) 55.0 % (42-75)
[2025-07-15 18:08] LABS: PLATELET ESTIMATE DECREASED
--- NOTE | 2025-07-15 18:09 | RADIOLOGY REPORT ---
CHEST RADIOGRAPH Indication: chf Technique: DI CHEST,SINGLE VIEW Comparison: None FINDINGS: The cardiac silhouette is unremarkable. The lungs demonstrate no pulmonary airspace consolidation. The pulmonary vasculature is unremarkable. There is no pleural effusion. There is no pneumothorax. Aortic atherosclerotic disease. IMPRESSION: No pulmonary airspace consolidation.
[2025-07-15] MEDS: normal saline 1000ML IV soln IVB ONE (18:36)
[2025-07-15] MEDS: CefTRIAXone 2gm/D5W 50ml BAG 50 ML IV ONE (18:36)
--- NOTE | 2025-07-15 18:36 | RADIOLOGY REPORT ---
CLINICAL HISTORY: abd distension TECHNIQUE: CT of the abdomen and pelvis was performed with IV contrast. This exam was performed according to our departmental dose optimization program. Up-to-date CT equipment and radiation dose reduction techniques are utilized as appropriate. CTDI 10 DLP 519 COMPARISON: CT CT ABDOMEN PELVIS W/ IV CONTRAST on DOS: 04/30/25, CT CT ABDOMEN PELVIS on DOS: 04/03/25, CT CT ABDOMEN PELVIS W/ IV ORAL CONTRAST on DOS: 01/26/25, CT CT ABDOMEN PELVIS W/ ORAL CONTRAST on DOS: 01/17/25, CT CT ABDOMEN PELVIS W/ ORAL CONTRAST on DOS: 01/13/25 FINDINGS: Abdomen/Pelvis: The spleen, pancreas, adrenal glands, and right kidney are unremarkable. There is a left renal cyst. The is slightly nodular in contour. The possible left hepatic lobe mass. The gallbladder is packed with calcified stones. The prostate gland is mildly to moderately enlarged, measuring 5.2 cm in transverse diameter. The bladder is decompressed by a Horn. There is an infrarenal abdominal aortic aneurysm with the abdominal aorta measuring up to 3.1 cm. There are moderate atherosclerotic changes. There is no free intraperitoneal air or fluid. There is no enlarged abdominal or pelvic lymph node. There is no bowel wall thickening or dilatation. There has been right colon surgery with reanastomosis. No significant diastases of the abdominal wall musculature. Loops of nondilated small and large bowel martínez fat extends into the diastatic anterior abdomen. There is a moderate amount of stool in the colon. Other: The imaged lower thorax demonstrates LAD coronary artery calcifications and strands of bilateral lower lung atelectasis and/or scar. No acute osseous abnormality is evident. IMPRESSION: No acute CT abnormality in the abdomen or pelvis. Cirrhosis. With a possible left hepatic lobe mass. Nonemergent liver MRI with and without IV contrast is recommended to evaluate for an underlying mass. Cholelithiasis. Prostatomegaly. Right colon surgery. Constipation. Significant anterior abdominal wall diastasis.
[2025-07-15 19:09] LABS: PRO BRAIN NATRIURETIC PEPTIDE 64 PG/ML (0-450)
[2025-07-15] MEDS: nicotine 21mg patch - 24 hr TD ONE (19:40)
[2025-07-15 21:26] VITALS: TEMP 98.1
== END 2025-07-15 21:28 | disposition left against medical advice (07) ==
LOC: ER 16:03 → UNDOADMIN 19:44 → ED HOLD 19:44 → UNDODISIN 21:26 → ER 21:28
DX: N39.0 Urinary tract infection, site not specified (principal); Z46.82 Encounter for fitting and adjustment of non-vascular catheter; R06.02 Shortness of breath
CPT/HCPCS: 36415; 71045; 74177; 80053; 81001; 83605; 83690; 83880; 85025; 87040; 87077; 87088; 87186; 96365; 99285; J0696; J7030; Q9967; 85007; A4314; G0378